=== PATIENT | female | born 1970 | race Caucasian/White ===

== ENCOUNTER 2019-06-19 12:46 | Outpatient (CLI) | payer MEDICAID | END 2019-06-19 12:47 | disposition home or self-care (01) | LOC: ULT 12:46 | PROVIDERS: ATTEND Internal Medicine Hematology & Oncology | DX: Z51.11 Encounter for antineoplastic chemotherapy (principal); C50.411 Malignant neoplasm of upper-outer quadrant of right female breast; C50.412 Malignant neoplasm of upper-outer quadrant of left female breast; I08.8 Other rheumatic multiple valve diseases | CPT/HCPCS: 93306 ==

== ENCOUNTER 2019-06-20 09:29 | Outpatient (CLI) | payer MEDICAID ==
[2019-06-20] MEDS ORDERED: Iopamidol 370 76% 100 ML VIAL ONE (10:06)
--- NOTE | 2019-06-20 12:08 | CT ---
CT CHEST AND ABDOMEN AND PELVIS WITH IV CONTRAST: INDICATION: Breast cancer. COMPARISON: There are no comparison studies. FINDINGS: CT CHEST: The lung broderick are clear. No evidence of infiltrate or effusion. No evidence of pulmonary mass or nodule. Mediastinum is unremarkable. There is a mass density in the right breast parenchyma measuring up to 3.5 cm. This has low-density center and may represent a hematoma from recent biopsy procedure. There is right axillary adenopathy . At least 1 node in the right axilla measures up to 1.2 cm. There are other smaller lymph nodes. There is a left axillary lymph node also measuring approximately 1.0 cm. An area o distortion in the lateral left breast parenchyma is seen, possibly corresponding to the known history of bilateral atiya ast cancer. The bony thorax is unremarkable. IMPRESSION: 1. Bilateral breast masses and nonspecific bilateral axillary adenopathy as described above. 2. CT chest otherwise unremarkable. CT ABDOMEN AND PELVIS: Liver, spleen, and pancreas appear unremarkable. Numerous peripherally calcified gallstones are seen in the gallbladder which is mildly contracted. B ile ducts appear normal caliber. Stomach and duodenum unremarkable. Adrenal glands normal. Kidneys unremarkable. Small bowel loops appear normal. Colon unremarkable. Aorta normal caliber. No evidence of adenopat hy. Images through the pelvis reveal a large cystic mass in the right adnexa measuring up to 6.3 cm in th e axial plane. This appears to arise from the right ovary. There are other follicles seen in the ov eugenia. There is a left adnexal cyst, probably ovarian, measuring up to 3.0 cm. Uterus is mildly prominent but otherwise unremarkable. No free fluid in the pelvis. Osseous structures unremarkable. IMPRESSION: 1. Cholelithiasis. 2. Large cystic mass in the right adnexa, probably ovarian, measuring up to 6.3 cm. A smaller cysti c mass in the left adnexa, probably ovarian, measuring up to 3.0 cm. Recommend followup to ensure re solution actually given the size of the right adnexal cystic mass in this age patient. POS: TYLOR
--- NOTE | 2019-06-20 14:29 | NM ---
Exam: Nuclear medicine whole body bone scan HISTORY: Malignant neoplasm of the upper outer quadrant of the right breast. Evaluate for osseous met astases COMPARISON: None TECHNIQUE: Patient was administered 32 mCi of technetium 99m MDP intravenously. After an appropriate delay, whole body imaging was performed FINDINGS: Physiologic distribution of the radiotracer Uptake in bilateral sternoclavicular joints and shoulders is felt to be due to degenerative change. No scintigraphic evidence of osseous metastases IMPRESSION: No scintigraphic evidence of osseous metastases.
[2019-06-20 15:11] LABS: #Eosinphils 0.2 thou/uL (0.0-0.7); #Lymphocytes 2.3 thou/uL (1.20-3.40); #Neutrophils 6.8 thou/uL (1.40-6.50); %Basophils 0.2 % (0.0-1.0); %Eosinophils 1.5 % (0.0-10.0); %Lymphocytes 22.5 % (21.0-51.0); %Monocytes 9.9 % (0.0-10.0); Hemoglobin 14.6 g/dL (12.0-16.0); Mean Corpuscular HGB CONC 35.1 g/dL (32.0-36.0); Mean Corpuscular Volume 91.3 fL (78.0-98.0); Mean Platelet Volume 6.9 fL (7.4-10.4); Platelet Count 282 thou/uL (130-400); RBC Distribution Width 11.6 % (11.5-14.5); Red Blood Cell (RBC) Count 4.56 mill/uL (4.20-5.40); White Blood Cell (WBC) Count 10.3 thou/uL (4.8-10.8)
[2019-06-20 15:39] LABS: Anion Gap 12 mmol/L (10-20); BUN (Urea Nitrogen) 9 mg/dL (7.0-18.7); Calc. Creatinine Clearance 0 mL/min (70-130); Carbon Dioxide 26 mmol/L (22-29); Chloride 106 mmol/L (98-107); Estimated GFR-MDRD 86; Glucose 64 mg/dL (70-105); Potassium 4.1 mmol/L (3.5-5.1); Sodium 140 mmol/L (136-145)
== END 2019-06-20 09:30 | disposition home or self-care (01) ==
LOC: CT 09:29
PROVIDERS: ATTEND Internal Medicine Hematology & Oncology
DX: C50.411 Malignant neoplasm of upper-outer quadrant of right female breast (principal); C50.412 Malignant neoplasm of upper-outer quadrant of left female breast; N63.20 Unspecified lump in the left breast, unspecified quadrant; N63.10 Unspecified lump in the right breast, unspecified quadrant; R59.0 Localized enlarged lymph nodes; K80.20 Calculus of gallbladder without cholecystitis without obstruction; N83.201 Unspecified ovarian cyst, right side; N83.202 Unspecified ovarian cyst, left side
CPT/HCPCS: 71260; 74177; 78306; 80048; 85025; A9503; Q9967

== ENCOUNTER 2019-06-23 10:38 | Day surgery (SDC) | payer MEDICAID ==
[2019-06-20 15:07] VITALS: BMI 31.8
[~2019-06-23 10:38] MED LIST: Dexamethasone 20 MG/5 ML VIAL ONE; Ondansetron PF 4 MG/2 ML Vial ONE; PROPOFOL 200 MG/20 ML VIAL ONE
[2019-06-23] MEDS ORDERED: Acetaminophen 500 MG TAB ONE (10:54)
[2019-06-23] MEDS ORDERED: Ketorolac Tromethamine 30 MG/ML VIAL ONE (10:54)
[2019-06-23] MEDS ORDERED: CEFAZOLIN 2 GM in Premix Bag 1 BAG IVPB SCH (11:00)
[2019-06-23] MEDS ORDERED: EPINEPHrine 1 MG/ML AMP ONE (11:44)
[2019-06-23] MEDS ORDERED: Bupivacaine 0.25% HCL 30 ML VIAL ONE (11:44)
[2019-06-23] MEDS ORDERED: Lidocaine 1% (PF) 30 ML VIAL ONE (11:44)
[2019-06-23] MEDS ORDERED: Fentanyl 100 MCG/2 ML VIAL ONE (12:08)
[2019-06-23] MEDS ORDERED: Midazolam HCl 2 mg/2 ml Vial ONE (12:08)
--- NOTE | 2019-06-23 14:43 | RAD ---
Exam: Chest one view portable: HISTORY: Status post Mediport placement FINDINGS: Left subclavian catheter injection port in place. Heart size is normal. The lungs are clear. No pneum othorax. IMPRESSION: Left subclavian catheter and injection port without pneumothorax.
--- NOTE | 2019-06-24 08:54 | OP ---
DATE OF PROCEDURE: 06/23/2019 PREOPERATIVE DIAGNOSIS: Bilateral breast cancer. POSTOPERATIVE DIAGNOSIS: Bilateral breast cancer. PROCEDURE PERFORMED: Placement of left subclavian standard-sized power compatible MediPort. ANESTHESIA: Total intravenous anesthesia with local using 0.25% Marcaine with epinephrine. INDICATIONS: The patient is a 48-year-old female. She presented recently with a neglected right breast cancer and has a biopsy-proven left breast cancer as well. She requires neoadjuvant chemotherapy. MediPort is to be placed for this purpose. I have elected to place it on the left side as this appears to be adequately remote from the cancer on the left breast. DESCRIPTION OF PROCEDURE: Informed consent was obtained. The patient was taken to the operating room where total intravenous anesthesia was obtained with the patient in supine position. Periclavicular area was prepped with ChloraPrep and draped in sterile fashion. Local anesthetic was infiltrated and a large-gauge needle was passed under the clavicle in the subclavian vein. Guidewire was passed through the needle and fluoroscopically confirmed to enter the superior vena cava. Additional local anesthetic was infiltrated and transverse incision was created based on needle insertion site. A subcutaneous pocket was dissected inferiorly. Introducer dilator was passed over the guidewire under fluoroscopic guidance. The guidewire and dilator were removed, and the catheter was passed through the introducer. The tip of the catheter was positioned at the atriocaval junction and the catheter was trimmed to the appropriate length and secured to the locking hub of the MediPort. The port was then placed in the subcutaneous pocket where it was secured to the pectoral fascia with 2 interrupted sutures of 3-0 Prolene. The incision was then closed in layers with 3-0 and 4-0 Monocryl. Additional local anesthetic was infiltrated. The port was cannulated with a Pedro needle and it aspirated blood freely and was flushed with heparinized saline. Dermabond was placed externally on the skin incision. There were no complications. Blood loss was negligible. The patient tolerated the procedure well and was taken to recovery room in stable condition. FINDINGS: I placed a standard size port secondary to her body habitus. The procedure was uneventful. There was essentially no blood loss. Fluoroscopy was used throughout. The catheter was placed into her left subclavian vein uneventfully. Job ID: [id number]
== END 2019-06-23 15:25 | disposition home or self-care (01) ==
LOC: SDC 10:38
PROVIDERS: ATTEND Specialist
PROC: 02HV33Z Insertion of Infusion Device into Superior Vena Cava, Percutaneous Approach (ICD-10-PCS; principal; 2019-06-23)
DX: C50.911 Malignant neoplasm of unspecified site of right female breast (principal); C50.912 Malignant neoplasm of unspecified site of left female breast; L73.9 Follicular disorder, unspecified; F17.200 Nicotine dependence, unspecified, uncomplicated; Z88.0 Allergy status to penicillin; Z88.5 Allergy status to narcotic agent; Z91.048 Other nonmedicinal substance allergy status
CPT/HCPCS: 71045; 88305; 93005; 93010; C1788; J0171; J1100; J1642; J1885; J1956; J2001; J2250; J2405; J2704; J3010; S0020

== ENCOUNTER 2019-07-24 10:45 | Outpatient (CLI) | payer MEDICAID ==
--- NOTE | 2019-07-24 11:49 | ULT ---
EXAM: Transabdominal and transvaginal pelvic ultrasound with Doppler PROVIDED CLINICAL HISTORY: Ovarian cysts COMPARISON: CT examination 06/20/2019 FINDINGS: The uterus measures approximately 8.4 x 4.5 x 5.2 cm and demonstrates a normal sonographic appearance . Nabothian cysts are seen. A subendometrial cyst is also noted in the lower uterine segment measuring about 9 mm. Uterine endometrial thickness is 1 cm. Right ovary measures approximately 6.6 x 4.4 x 7.2 cm and demonstrates a complex cystic mass measurin g approximately 4.6 cm maximally. This demonstrates thick internal septation. No definite mural nodule is seen. Left ovary measures approximately 5.1 x 3.1 x 3.1 cmdemonstrates a normal sonographic appearance. Grayscale and color Doppler sonography with spectral analysis of the ovarian waveforms demonstrates n ormal flow bilaterally. There is no evidence for free pelvic fluid. IMPRESSION: 4.6 cm complex cystic mass involving the right ovary. Comparison with respect to prior CT in terms of size is limited due to differences in modality. Cystic ovarian neoplasm should be considered. Consider BUS STARTER consultation and/or pelvic MRI.
== END 2019-07-24 10:46 | disposition home or self-care (01) ==
LOC: BICULT 10:45
PROVIDERS: ATTEND Internal Medicine Hematology & Oncology
DX: N83.202 Unspecified ovarian cyst, left side (principal); N83.201 Unspecified ovarian cyst, right side
CPT/HCPCS: 76856

== ENCOUNTER 2019-12-17 07:41 | Outpatient (CLI) | payer OTHER ==
[2019-12-17 14:02] LABS: #Eosinphils 0.2 thou/uL (0.0-0.7); #Lymphocytes 1.4 thou/uL (1.20-3.40); #Monocytes 0.5 thou/uL (0.11-0.59); #Neutrophils 4.5 thou/uL (1.40-6.50); %Basophils 0.3 % (0.0-1.0); %Eosinophils 2.7 % (0.0-10.0); %Lymphocytes 21.4 % (21.0-51.0); %Monocytes 7.2 % (0.0-10.0); %Neutrophils 68.5 % (42.0-75.0); Hemoglobin 13.9 g/dL (12.0-16.0); Mean Corpuscular HGB CONC 34.6 g/dL (32.0-36.0); Mean Corpuscular Hemoglobin 32.4 pg (27.0-31.0); Mean Corpuscular Volume 93.6 fL (78.0-98.0); Mean Platelet Volume 7.6 fL (7.4-10.4); Platelet Count 255 thou/uL (130-400); RBC Distribution Width 12.1 % (11.5-14.5); Red Blood Cell (RBC) Count 4.28 mill/uL (4.20-5.40); White Blood Cell (WBC) Count 6.6 thou/uL (4.8-10.8)
[2019-12-17 14:31] LABS: Anion Gap 11 mmol/L (10-20); BUN (Urea Nitrogen) 12 mg/dL (7.0-18.7); Calc. Creatinine Clearance 0 mL/min (70-130); Calcium 9.1 mg/dL (7.8-10.44); Carbon Dioxide 32 mmol/L (22-29); Chloride 104 mmol/L (98-107); Estimated GFR-MDRD 81; Glucose 120 mg/dL (70-105); Potassium 3.7 mmol/L (3.5-5.1); Sodium 143 mmol/L (136-145)
== END 2019-12-17 07:42 | disposition home or self-care (01) ==
LOC: LABBT 07:41
PROVIDERS: ATTEND Specialist
DX: Z01.812 Encounter for preprocedural laboratory examination (principal); C50.912 Malignant neoplasm of unspecified site of left female breast
CPT/HCPCS: 80048; 85025

== ENCOUNTER 2019-12-22 07:40 | Observation (INO) | payer OTHER ==
[2019-12-17 14:13] VITALS: BMI 31.8
[2019-12-17 14:24] LABS: BHCG - Serum Negative (NEGATIVE); Pregs Control Background? CLEAR/WHITE (CLR/WHITE); Pregs Control Bar Appear? YES (CONTROL BAR)
[2019-12-18 13:17] LABS: SARS-CoV-2 MS2 Positive; SARS-CoV-2 N Gene Negative; SARS-CoV-2 S Gene Negative; SARS-CoV-2 by NAA Not Detected (NotDetected); SARS-CoV-2 orf1ab Negative
[2019-12-22] MEDS ORDERED: Fentanyl 100 MCG/2 ML VIAL ONE ×3 (11:07→19:03)
[2019-12-22] MEDS ORDERED: Isosulfan Blue 50 MG/5 ML VIAL ONE (11:15)
[2019-12-22] MEDS ORDERED: Lidocaine 1% w/Epinephrine 1:100K 20 ML VIAL ONE ×2 (11:15→11:21)
[2019-12-22] MEDS ORDERED: Bupivacaine 0.25% HCL 30 ML VIAL ONE (11:15)
[2019-12-22] MEDS ORDERED: Bupivacaine PF 0.5% 30 ML VIAL ONE (11:21)
[2019-12-22] MEDS ORDERED: Lidocaine 1% PF 5 ML VIAL ONE (11:27)
[2019-12-22] MEDS ORDERED: Metoclopramide HCl 10 MG/2 ML VIAL ONE ×2 (11:27→19:03)
[2019-12-22] MEDS ORDERED: PHENYLEPHRINE-NS 100 MCG/ML 10 ML SYRINGE ONE (11:27)
[2019-12-22] MEDS ORDERED: Rocuronium Bromide 10 MG/ML (10ML VIAL) ONE (11:27)
[2019-12-22] MEDS ORDERED: Ondansetron PF 4 MG/2 ML Vial ONE ×2 (11:27→18:16)
[2019-12-22] MEDS ORDERED: Dexamethasone 20 MG/5 ML VIAL ONE (11:27)
[2019-12-22] MEDS ORDERED: EPHEDRINE 25 MG/5 ML SYRINGE ONE (11:27)
[2019-12-22] MEDS ORDERED: PROPOFOL 200 MG/20 ML VIAL ONE (11:27)
[2019-12-22] MEDS ORDERED: Acetaminophen 500 MG TAB ONE (11:40)
[2019-12-22] MEDS ORDERED: Ketorolac Tromethamine 30 MG/ML VIAL ONE (11:40)
--- NOTE | 2019-12-22 11:50 | NM ---
LYMPHOSCINTIGRAPHY BILATERAL BREASTS: DATE: 12/22/2019 HISTORY: 48-year-old female with malignant neoplasm of bilateral female breasts. TECHNIQUE: Signed informed consent obtained. Alcohol swabbing four-quadrant left periareolar distribution. Using 30-gauge needle, buffered lidocaine was applied to those 4 quadrants. Next, using 4 separate 30-gauge needles in 4 separate tuberculin syringes, a total of 414 uCi of technetium 99m sulfur collo id was injected into those same 4 periareolar quadrants. Immediate, one hour delayed, and 2 hour delayed anterior and scintigraphic images obtained of the chest. Patient tolerated procedure well. No complications. Alcohol swabbing four-quadrant right periareolar distribution. Using 30-gauge needle, buffered lidoca ine was applied to those 4 quadrants. Next, using 4 separate 30-gauge needles in 4 separate tuberculin syringes, a total of 371 uCi of technetium 99m sulfur colloid was injected into those same 4 periareolar quadrants. Immediate, one hour delayed, and 2 hour delayed anterior and scintigraphic images obtained of the chest. Patient tolerated procedure well. No complications. FINDINGS: Left side: There is uptake in sentinel left axillary lymph node, and in an array of additional, deeper left axil prabha lymph nodes. Right side: On the right, faint activity is visualized as seen on lateral views, posterior to the high uptake in the periareolar distribution. This could be activity in the contralateral left breast. Alternatively, this could represent a right axillary lymph node, as suggested on immediate anterior v iew IMPRESSION: 1. Successful left breast lymphoscintigraphy 2. Questionably successful right breast lymphoscintigraphy.
[2019-12-22] MEDS ORDERED: Levofloxacin 500 mg/D5W 100 ml Premix Bag ONE (12:08)
[2019-12-22] MEDS ORDERED: Clindamycin/D5W 900 mg/50 ml Premix Bag ONE (12:08)
[2019-12-22] MEDS ORDERED: Promethazine HCl 25 MG/ML VIAL SLOW IVP PRN (18:05)
[2019-12-22] MEDS ORDERED: Meperidine HCl/PF 25 MG/ML VIAL SLOW IVP PRN (18:05)
[2019-12-22] MEDS ORDERED: HYDROmorphone 2 MG/ML VIAL SLOW IVP PRN (18:05)
[2019-12-22] MEDS ORDERED: Promethazine HCl 25 MG/ML VIAL IM PRN ×2 (18:05→18:33)
[2019-12-22] MEDS ORDERED: Promethazine HCl 25 MG/ML VIAL ONE (18:23)
[2019-12-22] MEDS ORDERED: Ondansetron PF 4 MG/2 ML Vial IVP PRN (18:33)
[2019-12-22] MEDS ORDERED: Dextrose 50% Abboject 50 ML SYRINGE SLOW IVP PRN (18:33)
[2019-12-22] MEDS ORDERED: Morphine 4 MG/ML VIAL SLOW IVP PRN (18:33)
[2019-12-22] MEDS ORDERED: Dextrose 5% in Water 1,000 ML IV PRN (18:33)
[2019-12-22] MEDS ORDERED: HYDROcodone/Acetaminophen 7.5/325 mg Tablet PO PRN (18:33)
[2019-12-22] MEDS ORDERED: Morphine 2 MG/ML VIAL SLOW IVP PRN (18:33)
[2019-12-22] MEDS ORDERED: hydrALAZINE 20 MG/ML VIAL SLOW IVP PRN (18:33)
--- NOTE | 2019-12-22 19:36 | OP ---
DATE OF PROCEDURE: 12/22/2019 PREOPERATIVE DIAGNOSES: 1. Right adnexal mass. 2. Breast cancer. POSTOPERATIVE DIAGNOSES: 1. Right adnexal mass. 2. Breast cancer. PROCEDURES: Laparoscopic bilateral salpingo-oophorectomy and pelvic washings. ANESTHESIA: General endotracheal. SCRAP KETTLE TENDER: Jodi Bryan PA-C ESTIMATED BLOOD LOSS: 10 mL. COMPLICATIONS: None. DRAINS: Esquivel catheter. PATHOLOGY: 1. Bilateral fallopian tubes and ovaries. 2. Pelvic washing. FINDINGS: Large multicystic right ovarian mass. Normal left ovary and bilateral fallopian tubes. Normal-appearing uterus. Excellent hemostasis. Ureters intact. DESCRIPTION OF PROCEDURE: The patient was taken to the operating room, where general anesthesia was obtained without difficulty. The patient was prepped and draped in a sterile fashion in the dorsal lithotomy position. A Esquivel catheter was placed in the bladder. A speculum was placed in the vagina. The anterior lip of the cervix was grasped with single-tooth tenaculum. The single-tooth Jorge Luis manipulator was placed into the cervix. The tenaculum and speculum were removed from the vagina. Attention was turned to the abdomen and legs were placed in low lithotomy and a mixture of anesthetic solution was infiltrated into the umbilicus and a 5-mm skin incision was made. The Veress needle was passed into the abdomen noting an opening pressure of 1 mmHg. Pneumoperitoneum was obtained without difficulty. The 5 mm trocar and camera were advanced into the abdomen optically and Trendelenburg was obtained. Above findings were noted. Right lower quadrant 5-mm trocar was placed under direct visualization after infiltrating with anesthetic. A 12-mm left lower quadrant trocar was placed under direct visualization after infiltrating with anesthetic. The uterus was then elevated. The right fallopian tube was grasped and elevated. The IP ligament was identified and the ureter was noted medially at the pelvic brim. The IP ligament was cauterized with the LigaSure and incised and this was performed around the meso-ovarium and the ovarian border. Obtaining excellent hemostasis, the utero-ovarian was then cauterized medially and incised with the LigaSure and the ovary once transected was placed into the anterior cul-de-sac. The left fallopian tube was grasped and elevated. The ureter was noted on the left side at the pelvic brim. The IP ligament was cauterized and incised with the LigaSure in the same fashion the right side was. The utero-ovarian was cauterized and incised and the ovary was completely transected and placed anteriorly as well. Additional cautery was performed of the left IP for hemostasis. Irrigation was performed. Low pressure check was performed and hemostasis was noted to be excellent. The washings of the pelvis were sent for final cytology. At that time, a bag was passed into the abdomen and the ovarian specimens were placed within it. The bag was brought to the abdominal wall and brought out in pieces with a ring forcep. The fascia was extended slightly on the left side to accommodate the contents. There was rupture of the cyst; however, this did not spill into the abdomen and all of the specimen was removed in entirety in a contained fashion in the bag. GraNee needle was used to close the fascia with a 0 Vicryl and 2 stitches with excellent reapproximation. The skin was closed with 4-0 Monocryl in a subcuticular fashion. Dermabond was applied. The Hulka was removed off the cervix. The cervix was examined directly and noted to have minimal oozing from the tenaculum site. All instruments were removed out of the vagina. Dr. Gonzalez then entered the room and began his portion of the procedure. The patient tolerated my procedure well and all counts were correct. Job ID: [id number]
[2019-12-22] MEDS ORDERED: Enoxaparin Sodium 40 MG/0.4 ML SYRINGE SC SCH (21:00)
[2019-12-22] MEDS: D5 1/2 NS w/20 mEq KCL 1,000 ML IV SCH (21:30)
[2019-12-22] MEDS: Famotidine 20 MG TAB PO SCH (21:31)
[2019-12-23 05:06] LABS: #Lymphocytes 0.7 thou/uL (1.20-3.40); #Monocytes 0.7 thou/uL (0.11-0.59); #Neutrophils 10.5 thou/uL (1.40-6.50); %Basophils 0.1 % (0.0-1.0); %Eosinophils 0.1 % (0.0-10.0); %Lymphocytes 6.1 % (21.0-51.0); %Neutrophils 87.7 % (42.0-75.0); Mean Corpuscular HGB CONC 33.7 g/dL (32.0-36.0); Mean Corpuscular Hemoglobin 31.5 pg (27.0-31.0); Mean Corpuscular Volume 93.6 fL (78.0-98.0); Mean Platelet Volume 7.2 fL (7.4-10.4); Platelet Count 217 thou/uL (130-400); RBC Distribution Width 11.6 % (11.5-14.5); Red Blood Cell (RBC) Count 3.47 mill/uL (4.20-5.40)
[2019-12-23 05:38] LABS: Anion Gap 15 mmol/L (10-20); BUN (Urea Nitrogen) 9 mg/dL (7.0-18.7); Calc. Creatinine Clearance 132 mL/min (70-130); Calcium 8.4 mg/dL (7.8-10.44); Carbon Dioxide 21 mmol/L (22-29); Chloride 107 mmol/L (98-107); Estimated GFR-MDRD Greater than 90; Glucose 155 mg/dL (70-105); Sodium 139 mmol/L (136-145)
--- NOTE | 2019-12-23 06:39 | PDOC.GSPN ---
Surgery Progress Note: Subj - Subjective Narrative: Mrs. Frank Chua is a 49 year old female POD #1 from bilateral mastectomy + sentinel node biopsy and laparoscopic salpinogo-oophorectomy. Patient reports doing well overnight and slept relatively well. She denies any fever, chills, nausea, vomiting, swelling, or bowel/bladder problems. Pain level currently 5/ 10. She was given morphine and zofran around 3 am last night, which helped alleviate her pain. The patient is ambulating and is tolerating a regular diet. She is on D5 1/2 NS w/ 20 mEq KCl 1000 mL IV at a rate of 70 mL/hr. I/O: 1730 mL /170 mL (ROLDAN drain) + 3 unmeasured voids. Surgery Progress Note: Obj - Vital signs Vital signs: Vital Signs - Most Recent Temp Pulse Resp BP Pulse Ox 97.8 F 82 18 128/71 96 12/22/19 20:18 12/23/19 02:18 12/22/19 20:18 12/23/19 02:18 12/22/19 20:18 - Physical Exam General: no distress, moderate pain (pain level 5/10) Cardiovascular: regular rate and rhythm Respiratory: clear to auscultation, normal respiratory effort Abdomen: soft, nondistended, positive bowel sounds, appropriately tender (mild tenderness at incision sites) Wound: dressing clean,dry,intact (chest wrap remains intact), healing well (lap incisions healing well), drainage (minimal drainage in ROLDAN drain) Surgery Progress Note: Results - Labs Result Diagrams: 12/23/19 04:45 12/23/19 04:45 Lab results: Laboratory Results - last 24 hr 12/23/19 12/23/19 04:45 04:45 WBC 12.0 H RBC 3.47 L Hgb 11.0 L Hct 32.5 L MCV 93.6 MCH 31.5 H MCHC 33.7 RDW 11.6 Plt Count 217 MPV 7.2 L Neutrophils % 87.7 H Lymphocytes % 6.1 L Monocytes % 6.0 Eosinophils % 0.1 Basophils % 0.1 Neutrophils # 10.5 H Lymphocytes # 0.7 L Monocytes # 0.7 H Eosinophils # 0.0 Basophils # 0.0 Sodium 139 Potassium 4.0 Chloride 107 Carbon Dioxide 21 L Anion Gap 15 BUN 9 Creatinine 0.68 Estimated GFR (MDRD) Greater than 90 Glucose 155 H Calcium 8.4 Surgery Progress Note: A/P - Problem (1) Ovarian cyst Current Visit: Yes Code(s): N83.209 - UNSPECIFIED OVARIAN CYST, UNSPECIFIED SIDE Status: Acute Qualifiers: Laterality: right Qualified Code(s): N83.201 - Unspecified ovarian cyst, right side (2) Breast cancer Current Visit: Yes Status: Acute Qualifiers: Patient sex: female Laterality: left - Plan Plan: Mrs. Frank Chua is a 49 year old female with breast cancer and R adnexal mass s/p bilateral mastectomy w/ sentinel node biopsy and laparoscopic bilateral salpingo-oophorectomy. Patient is doing well overall. No fever, n/v, or edema. She reports moderate pain, is ambulating, and tolerating food well. Plan: 1. Continue pain management 2. Remain ambulatory 3. Monitor ROLDAN drain output note: Pt doing well. Stable after surgery. Home today [facility]
[2019-12-23] MEDS: HYDROcodone/Acetaminophen 7.5/325 mg Tablet PO PRN ×3 (08:22→17:28)
[2019-12-23] MEDS: Famotidine 20 MG TAB PO SCH (08:25)
[2019-12-23] MEDS: D5 1/2 NS w/20 mEq KCL 1,000 ML IV SCH (11:03)
[2019-12-23] MEDS ORDERED: Lisinopril 5 MG TAB PO SCH (18:45)
[2019-12-23] MEDS ORDERED: cloNIDine 0.2 MG TAB PO SCH (20:15)
[2019-12-23 21:11] VITALS: BP 216/100; TEMP 98.3
--- NOTE | 2019-12-25 13:49 | OP ---
DATE OF PROCEDURE: 12/22/2019 PREOPERATIVE DIAGNOSIS: Bilateral breast cancer. POSTOPERATIVE DIAGNOSIS: Bilateral breast cancer. PROCEDURES PERFORMED: 1. Right modified radical mastectomy. 2. Left skin sparing mastectomy. 3. Left sentinel lymph node biopsy. ANESTHESIA: General endotracheal. INDICATIONS: The patient is a 48-year-old female, who had presented with a large neglected right breast cancer. She was also found to have a smaller left breast cancer. She underwent a course of neoadjuvant chemotherapy. She presents today for definitive surgery. She has decided to proceed with skin sparing mastectomy with hopes of reconstruction at a later date. Under the same anesthetic, Dr. Castrejon plans to perform a laparoscopic bilateral salpingo-oophorectomy. DESCRIPTION OF OPERATION: Informed consent was obtained. The patient was taken to the operating room, where general endotracheal anesthesia was obtained with the patient in the supine position. She had already undergone laparoscopic bilateral salpingo-oophorectomy and was in stable condition. Bilateral breasts and axilla were prepped with ChloraPrep and draped in sterile fashion. Bilateral breasts were infiltrated with 3 mL of Isosulfan blue in the periareolar subdermal tissue and massaged for 5 minutes. Attention was turned first to the right breast. A skin sparing incision was created across the breast to remove the nipple-areolar complex secondary to nipple-areolar retraction. No additional skin was removed. All dissection was carried out with the plasma blade. Flaps were raised superiorly, laterally, and inferiorly with attention turned toward the axilla. I inspected visually and using the Neoprobe, I could find no evidence of any blue dye or any radioactivity within the right axilla. This coincided with the findings of the lymphoscintigraphy. I decided to proceed with a full axillary node dissection on the right side. She did have evidence of axillary metastasis prior to her neoadjuvant therapy. Attention was turned to the left breast. A sentinel lymph node biopsy was performed on the left through a transverse axillary incision. Dissection revealed 2 dominant sentinel nodes that were both radioactive and blue stained. All investing lymphatics were divided between clamps and 3-0 silk ties. Touch prep on those lymph nodes proved to be negative. Meticulous hemostasis was obtained. The wound was closed in layers with 3-0 and 4-0 Monocryl. Attention was then turned to the breast. A nipple sparing incision was created across the central left breast in a symmetrical fashion to the incision that had already been created on the right. No significant additional skin was removed other than the nipple-areolar complex. Flaps were raised superiorly, medially, and inferiorly down to the chest wall using plasma blade dissection. The breast was then swept off the wall in a medial to lateral fashion toward the axilla. At the lateral edge of the pectoralis, the dissection was completed and the specimen was passed off the field. It was oriented with suture at first. The wound was irrigated and meticulous hemostasis was obtained. The skin edges were left intact without attempting to tailor them significantly. A #19 round fluted drain was brought out laterally and inferiorly and secured with 3-0 nylon suture. The skin edges were approximated with a running suture of 3-0 Vicryl to approximate deep layers and skin yunior to approximate skin edges. Attention was turned to the right breast. The skin incision had already been made. Dissection was completed down to the chest wall superiorly, medially, and inferiorly. On the superior aspect, there was one area, where I attempted to lift the skin and subcutaneous tissue off the underlying malignancy. It appeared that the dissection plane could be close and I therefore marked the underside of the skin at the area of concern with a couple of metallic clips and a nylon suture. It was entirely possible this was scar tissue left over from former cancer and there was no quick way to discern that. The breast was then swept off the chest wall in a medial to lateral fashion toward the axilla. At the lateral aspect of the pectoralis, dissection was carried superiorly to identify the axillary vein. On the inferior aspect of the axillary vein, dissection was carried out to identify the long thoracic and thoracodorsal nerves, both of which were preserved throughout the case. The fatty and lymphatic tissues were swept inferiorly out of the axilla. Lymphatics were divided between clips as they were encountered. The specimen was tagged for orientation and then submitted to pathology with the axillary lymphatics in continuity with the mastectomy specimen. The wound was carefully irrigated and meticulous hemostasis was obtained. Two #19 round fluted drains were placed, one into the axilla and one across the chest wall and each was secured with a 3-0 nylon suture. The skin edges were approximated with 3-0 Vicryl and skin yunior. A Xeroform gauze and fluffed gauze dressing were applied across the chest wall. The SilversteinWrap was then placed circumferentially around her chest and over her right shoulder. There were no complications. Blood loss was minimal during the operation. She tolerated the procedure well and was taken to recovery room in stable condition. Job ID: [id number]
== END 2019-12-23 20:50 | disposition home or self-care (01) ==
LOC: SDC 07:40 → SURG B 18:14
PROVIDERS: ADMIT Specialist; ATTEND Specialist
PROC: 0UT24ZZ Resection of Bilateral Ovaries, Percutaneous Endoscopic Approach (ICD-10-PCS; principal; 2019-12-22)
PROC: 0UT74ZZ Resection of Bilateral Fallopian Tubes, Percutaneous Endoscopic Approach (ICD-10-PCS; 2019-12-22)
PROC: 0HTV0ZZ Resection of Bilateral Breast, Open Approach (ICD-10-PCS; 2019-12-22)
PROC: 07T50ZZ Resection of Right Axillary Lymphatic, Open Approach (ICD-10-PCS; 2019-12-22)
PROC: 07B60ZX Excision of Left Axillary Lymphatic, Open Approach, Diagnostic (ICD-10-PCS; 2019-12-22)
DX: C50.111 Malignant neoplasm of central portion of right female breast (principal); C50.412 Malignant neoplasm of upper-outer quadrant of left female breast; C77.3 Secondary and unspecified malignant neoplasm of axilla and upper limb lymph nodes; N60.92 Unspecified benign mammary dysplasia of left breast; D27.0 Benign neoplasm of right ovary; N83.01 Follicular cyst of right ovary; F17.210 Nicotine dependence, cigarettes, uncomplicated; F32.9 Major depressive disorder, single episode, unspecified; Z17.0 Estrogen receptor positive status [ER+]; Z79.899 Other long term (current) drug therapy; Z88.0 Allergy status to penicillin; Z88.5 Allergy status to narcotic agent; Z91.048 Other nonmedicinal substance allergy status; Z01.818 Encounter for other preprocedural examination; Z20.828 Contact with and (suspected) exposure to other viral communicable diseases
CPT/HCPCS: 36415; 78195; 80048; 84703; 85025; 86850; 86900; 86901; 87635; 88112; 88305; 88307; 88309; 88333; 88334; 88341; 88342; 96372; 96374; 96375; 96376; A9541; G0378; J1100; J1650; J1885; J1956; J2270; J2405; J2550; J2704; J2765; J3010; J3480; J3490; Q9968; S0020; U0003

== ENCOUNTER 2020-01-09 06:22 | Outpatient (CLI) | payer OTHER ==
[2020-01-09 16:21] LABS: #Eosinphils 0.2 thou/uL (0.0-0.7); #Lymphocytes 0.9 thou/uL (1.20-3.40); #Monocytes 0.7 thou/uL (0.11-0.59); #Neutrophils 3.5 thou/uL (1.40-6.50); %Basophils 0.6 % (0.0-1.0); %Eosinophils 3.6 % (0.0-10.0); %Lymphocytes 17.4 % (21.0-51.0); %Monocytes 12.9 % (0.0-10.0); %Neutrophils 65.6 % (42.0-75.0); Hemoglobin 11.5 g/dL (12.0-16.0); Mean Corpuscular HGB CONC 32.7 g/dL (32.0-36.0); Mean Corpuscular Hemoglobin 30.2 pg (27.0-31.0); Mean Corpuscular Volume 92.5 fL (78.0-98.0); Mean Platelet Volume 6.7 fL (7.4-10.4); Platelet Count 399 thou/uL (130-400); RBC Distribution Width 11.4 % (11.5-14.5); White Blood Cell (WBC) Count 5.3 thou/uL (4.8-10.8)
[2020-01-09 17:03] LABS: Anion Gap 16 mmol/L (10-20); BUN (Urea Nitrogen) 15 mg/dL (7.0-18.7); Calc. Creatinine Clearance 0 mL/min (70-130); Calcium 8.7 mg/dL (7.8-10.44); Carbon Dioxide 22 mmol/L (22-29); Chloride 104 mmol/L (98-107); Estimated GFR-MDRD 74; Glucose 100 mg/dL (70-105); Potassium 4.7 mmol/L (3.5-5.1); Sodium 137 mmol/L (136-145)
[2020-01-10 14:47] LABS: SARS-CoV-2 MS2 Positive; SARS-CoV-2 N Gene Negative; SARS-CoV-2 S Gene Negative; SARS-CoV-2 by NAA Not Detected (NotDetected); SARS-CoV-2 orf1ab Negative
== END 2020-01-09 06:23 | disposition home or self-care (01) ==
LOC: LABBT 06:22
PROVIDERS: ATTEND Specialist
DX: Z01.812 Encounter for preprocedural laboratory examination (principal); C50.911 Malignant neoplasm of unspecified site of right female breast; Z20.828 Contact with and (suspected) exposure to other viral communicable diseases
CPT/HCPCS: 80048; 85025; 87635; U0003

== ENCOUNTER 2020-01-13 07:49 | Day surgery (SDC) | payer OTHER ==
[2020-01-12 10:50] VITALS: BMI 30.6
[2020-01-13] MEDS ORDERED: Acetaminophen 500 MG TAB ONE (08:07)
[2020-01-13] MEDS ORDERED: Ketorolac Tromethamine 30 MG/ML VIAL ONE (08:07)
[2020-01-13] MEDS ORDERED: Midazolam HCl 2 mg/2 ml Vial ONE (08:26)
[2020-01-13] MEDS ORDERED: Bupivacaine 0.25% HCL 30 ML VIAL ONE (09:38)
[2020-01-13] MEDS ORDERED: Lidocaine 1% w/Epinephrine 1:100K 20 ML VIAL ONE (09:38)
[2020-01-13] MEDS ORDERED: Ondansetron PF 4 MG/2 ML Vial ONE ×2 (11:04→14:14)
[2020-01-13] MEDS ORDERED: Fentanyl 100 MCG/2 ML VIAL ONE ×2 (11:23→12:25)
[2020-01-13] MEDS ORDERED: Promethazine HCl 25 MG/ML VIAL ONE (11:23)
[2020-01-13] MEDS ORDERED: HYDROcodone/Acetaminophen 5/325 mg Tablet ONE (13:22)
[2020-01-13] MEDS ORDERED: Dexamethasone 20 MG/5 ML VIAL ONE (14:14)
[2020-01-13] MEDS ORDERED: Lidocaine 1% PF 5 ML VIAL ONE (14:14)
[2020-01-13] MEDS ORDERED: PROPOFOL 200 MG/20 ML VIAL ONE (14:14)
--- NOTE | 2020-01-14 13:28 | OP ---
DATE OF PROCEDURE: 01/13/2020 PREOPERATIVE DIAGNOSIS: Extensive left breast cancer with a positive margin on the superior aspect of the anterior portion of the mastectomy. I had been concerned about this location and had therefore marked the underside of the flap with metallic clips. She has returned to the operating room at this time for re-excision of the superior mastectomy flap. Her prior mastectomy was performed with skin-sparing technique to leave all of the skin possible for eventual reconstruction. She understands that excision of this superior flap will alter the confirmation of her residual breast. DESCRIPTION OF OPERATION: Informed consent was obtained. The patient was taken to the operating room where general anesthesia was obtained with the patient in supine position. The breast was prepped with ChloraPrep and draped in sterile fashion. Intraoperative fluoroscopy was utilized to identify the area of the 2 metallic clips that I had placed. These were both clearly identified and marked on the skin. I then fashioned an incision that arched from the prior mastectomy incision up over and to include the area of concern given at least a 1 cm superior margin above that. Incision was created and dissection carried through skin and subcutaneous tissue. Hemostasis maintained with electrocautery. The specimen was oriented for pathology with sutures and submitted. There was a substantial seroma present within the right mastectomy cavity. This had all been aspirated and irrigated. A #19 round fluted drain was placed within the mastectomy site and this was secured at skin exit site with 3-0 nylon. The skin flaps were then approximated with a running suture of 3-0 Vicryl to approximate the deep layers and skin yunior to approximate skin edges. There were no complications. Blood loss was minimal. The patient tolerated the procedure well and was taken to recovery room in stable condition. Not mentioned above, was that I addressed the left breast seroma as well. I aspirated this in the operating room, removing about 70 mL of clear serosanguineous fluid. I decided not to replace a drain in that mastectomy site at this time. Job ID: [id number]
--- NOTE | 2020-01-18 12:48 | EKG ---
Test Reason : PREOP Blood Pressure : / mmHG Vent. Rate : 071 BPM Atrial Rate : 071 BPM P-R Int : 142 ms QRS Dur : 098 ms QT Int : 416 ms P-R-T Axes : 061 027 046 degrees QTc Int : 452 ms Normal sinus rhythm Normal ECG Confirmed by CABRERA COLIN MD ([id number] on 01/18/2020 12:47:49 PM Referred By: MONAE Confirmed By:CABRERA COLIN MD
== END 2020-01-13 13:40 | disposition home or self-care (01) ==
LOC: SDC 07:49
PROVIDERS: ATTEND Specialist
PROC: 0HBT0ZZ Excision of Right Breast, Open Approach (ICD-10-PCS; principal; 2020-01-13)
DX: C50.911 Malignant neoplasm of unspecified site of right female breast (principal); N64.1 Fat necrosis of breast; N60.31 Fibrosclerosis of right breast; M96.841 Postprocedural hematoma of a musculoskeletal structure following other procedure; C50.912 Malignant neoplasm of unspecified site of left female breast; C77.3 Secondary and unspecified malignant neoplasm of axilla and upper limb lymph nodes; F32.9 Major depressive disorder, single episode, unspecified; F17.200 Nicotine dependence, unspecified, uncomplicated; Z17.0 Estrogen receptor positive status [ER+]; Z79.899 Other long term (current) drug therapy; Z88.0 Allergy status to penicillin; Z91.048 Other nonmedicinal substance allergy status
CPT/HCPCS: 76000; 88307; 93005; 93010; J0690; J1100; J1885; J2250; J2405; J2550; J2704; J3010; S0020

== ENCOUNTER 2020-01-26 07:42 | Outpatient (CLI) | payer OTHER ==
[2020-01-26 14:17] LABS: #Eosinphils 0.1 thou/uL (0.0-0.7); #Lymphocytes 1.4 thou/uL (1.20-3.40); #Monocytes 0.5 thou/uL (0.11-0.59); #Neutrophils 3.6 thou/uL (1.40-6.50); %Basophils 0.2 % (0.0-1.0); %Eosinophils 2.2 % (0.0-10.0); %Lymphocytes 25.1 % (21.0-51.0); %Monocytes 8.8 % (0.0-10.0); %Neutrophils 63.7 % (42.0-75.0); Hemoglobin 12.5 g/dL (12.0-16.0); Mean Corpuscular HGB CONC 33.6 g/dL (32.0-36.0); Mean Corpuscular Volume 89.1 fL (78.0-98.0); Mean Platelet Volume 7.1 fL (7.4-10.4); Platelet Count 266 thou/uL (130-400); RBC Distribution Width 12.3 % (11.5-14.5); Red Blood Cell (RBC) Count 4.17 mill/uL (4.20-5.40); White Blood Cell (WBC) Count 5.7 thou/uL (4.8-10.8)
[2020-01-26 15:02] LABS: Anion Gap 14 mmol/L (10-20); BUN (Urea Nitrogen) 10 mg/dL (7.0-18.7); Calc. Creatinine Clearance 0 mL/min (70-130); Carbon Dioxide 26 mmol/L (22-29); Chloride 104 mmol/L (98-107); Estimated GFR-MDRD 83; Glucose 135 mg/dL (70-105); Potassium 3.8 mmol/L (3.5-5.1); Sodium 140 mmol/L (136-145)
[2020-01-27 15:28] LABS: SARS-CoV-2 MS2 Positive; SARS-CoV-2 N Gene Negative; SARS-CoV-2 S Gene Negative; SARS-CoV-2 by NAA Not Detected (NotDetected); SARS-CoV-2 orf1ab Negative
== END 2020-01-26 07:43 | disposition home or self-care (01) ==
LOC: LABBT 07:42
PROVIDERS: ATTEND Specialist
DX: Z01.812 Encounter for preprocedural laboratory examination (principal); Z20.828 Contact with and (suspected) exposure to other viral communicable diseases; C50.911 Malignant neoplasm of unspecified site of right female breast
CPT/HCPCS: 80048; 85025; 87635; U0003

== ENCOUNTER 2020-01-29 10:37 | Day surgery (SDC) | payer OTHER ==
[2020-01-26 15:30] VITALS: BMI 26.6
[~2020-01-29 10:37] MED LIST changes: +Lidocaine 1% PF 5 ML VIAL ONE; +PHENYLEPHRINE-NS 100 MCG/ML 10 ML SYRINGE ONE
[2020-01-29] MEDS ORDERED: Ketorolac Tromethamine 30 MG/ML VIAL ONE (11:08)
[2020-01-29] MEDS ORDERED: Acetaminophen 500 MG TAB ONE (11:08)
[2020-01-29] MEDS ORDERED: Midazolam HCl 2 mg/2 ml Vial ONE (11:53)
[2020-01-29] MEDS ORDERED: Levofloxacin 500 mg/D5W 100 ml Premix Bag ONE (13:17)
[2020-01-29] MEDS ORDERED: Fentanyl 100 MCG/2 ML VIAL ONE (13:34)
[2020-01-29] MEDS ORDERED: Bupivacaine/Epinephrine 0.25% 30 ML VIAL ONE (13:36)
[2020-01-29] MEDS ORDERED: Promethazine HCl 25 MG/ML VIAL ONE (15:34)
[2020-01-29] MEDS ORDERED: HYDROcodone/Acetaminophen 5/325 mg Tablet ONE (16:58)
--- NOTE | 2020-01-30 13:25 | OP ---
DATE OF PROCEDURE: 01/29/2020 PREOPERATIVE DIAGNOSIS: Positive excision margin following right mastectomy and one prior margin re-excision. POSTOPERATIVE DIAGNOSIS: Positive excision margin following right mastectomy and one prior margin re-excision with findings of a persistent seroma with a seroma capsule formation. PROCEDURES PERFORMED: Re-excision of right superior mastectomy margin with frozen section, seroma capsulectomy. ANESTHESIA: General endotracheal. INDICATIONS: The patient is a 49-year-old female. She had initially presented with a large neglected right breast cancer. Following neoadjuvant chemotherapy, she had undergone a right mastectomy and axillary lymph node dissection. She unfortunately had positive margins on the superior aspect of her mastectomy. I re-excised this once previously and unfortunately, there was found to be a persistently positive margin. She is therefore returned to the operating room at this time for re-excision of her superior margin. DESCRIPTION OF PROCEDURE: Informed consent was obtained. The patient was taken to the operating room. General endotracheal anesthesia was obtained with the patient in supine position. Chest was prepped with ChloraPrep and draped in sterile fashion. Local anesthetic was infiltrated using 0.25% Marcaine with epinephrine. I fashioned an incision across the right mastectomy, removing an additional 1.5 cm from the superior margin extending the incision somewhat medially for better cosmesis with closure. The specimen was removed intact and tagged with suture for orientation. I specifically marked the new superior margin with blue ink to indicate the area of concern for frozen section. This was communicated to pathology. Frozen section results revealed no evidence of dermal invasion of the malignancy, which had been present upon the prior excision. Hemostasis was maintained with electrocautery. Upon entry into the mastectomy space, there was a well formed and defined capsule with a persistent seroma within the space. As it has been several weeks since the initial mastectomy, this was not felt to be likely to close spontaneously. I therefore performed a meticulous capsulectomy. The capsule was excised from the underlying aspect of the mastectomy flaps both superiorly and inferiorly. I removed the capsule from the pectoralis muscle to that places where it was feasible and in areas where it was not. I aggressively scored and debrided the tissue. The capsule was removed from within the axilla as well. Meticulous hemostasis was obtained throughout. The wound was irrigated and all irrigant was aspirated. A #19 round fluted drain was placed within the wound. It was secured with 3-0 nylon suture externally. The wound was closed in layers with 3-0 Vicryl and skin yunior. There were no complications. The patient tolerated the procedure well and was taken to recovery in stable condition. Job ID: [id number]
== END 2020-01-29 17:15 | disposition home or self-care (01) ==
LOC: SDC 10:37
PROVIDERS: ATTEND Specialist
PROC: 0HBT0ZZ Excision of Right Breast, Open Approach (ICD-10-PCS; principal; 2020-01-29)
DX: C50.911 Malignant neoplasm of unspecified site of right female breast (principal); F32.9 Major depressive disorder, single episode, unspecified; F17.200 Nicotine dependence, unspecified, uncomplicated; Z17.0 Estrogen receptor positive status [ER+]; Z79.899 Other long term (current) drug therapy; Z88.0 Allergy status to penicillin; Z91.048 Other nonmedicinal substance allergy status
CPT/HCPCS: 88307; 88331; 88332; J0690; J1100; J1885; J1956; J2250; J2405; J2550; J2704; J3010